=== PATIENT | female | born 1940 | race African-American/Black ===

== ENCOUNTER 2016-12-24 05:24 | Day surgery (SDC) | payer OTHER ==
[~2016-12-24] VITALS: Ht 162.6 cm; Wt 90.7 kg
--- NOTE | ~2016-12-24 | O ---
[facility] [place] [address] OPERATIVE REPORT Name: CORNELIO RODRIGUEZ Room #: 150-3 [facility].#: [id number] Admission: 12/24/16 Attend Phys: Los Peralta MD Discharge: Date of : 36 Report #: [id number] THIS REPORT FOR: //name// CC: Los Peralta Benjamin Fisheren DATE OF SERVICE: 12/24/2016 PREOPERATIVE DIAGNOSIS: Right upper lip lesion. POSTOPERATIVE DIAGNOSIS: Right upper lip lesion. PROCEDURE: Excision of right upper lip lesion with intermediate layered closure. SURGEON: Los Peralta MD. ANESTHESIA: Local MAC, 1% Xylocaine and 1:100,000 epinephrine, 6 mL used. TECHNIQUE: After obtaining consent, the patient was brought to the operating suite. Appropriate time-out was performed. Local MAC anesthesia was applied and monitored throughout the case by anesthesia. The right upper lip was identified and marked and local anesthetic was applied in a circumferential fashion. The lip was prepped and draped in usual sterile fashion. A vertically oriented elliptical incision was made around the mass through the skin and subcutaneous tissue. Sharp dissection with the scissors, isolated the mass away from the underlying subcutaneous tissue. This was going on top of the muscularis layer and using a cautery, pinpoint on a setting of 12 coagulation and it was amputated off the muscularis layer intact. Hemostasis was easily obtained with the use of electrocautery. Given the defect, I then undermined the medial and lateral edges of the incision. After obtaining hemostasis, I first tacked the red lip line together with a 5-0 chromic suture. A 4-0 Vicryl was then used subcutaneously to reapproximate subcutaneous tissues. The skin was closed with simple interrupted 5-0 black nylon and the mucosal portion of the lip that was open was closed with 5-0 chromic. Antibiotic ointment was applied. She was allowed to fully awake and went to the recovery room in stable condition. ESTIMATED BLOOD LOSS: Less than 5 mL. By: [id number] Los Peralta MD /janes
--- NOTE | ~2016-12-24 | S ---
[facility] [place] [address] SURGICAL PATH RPT PROCEDURE Name: CORNELIO PERKINS Room #: [facility] [facility]..#: [id number] Admission: 12/24/16 Date of : 36 Discharge: 12/24/16 Report #: [id number] Path Case #: [id number] PATHOLOGY REPORT COLLECTION DATE: 12/24/2016 RECEIVED DATE: 12/24/2016 SUBMITTING PHYS: Dr. Los Peralta OTHER PHYS: Dr. Benjamin Villasenor SPECIMEN(S) RECEIVED: A.Upper lip cyst * * * * * * * * * * * * FINAL DIAGNOSIS: Upper lip cyst, excision: - Mature keratinous cyst. (IUV:mgr; 12/27/2016) PATHOLOGIST: Vivienne Woodson M.D. REPORT ELECTRONICALLY SIGNED BY: Vivienne Woodson M.D. DATE/TIME: 12/27/2016 16:39 * * * * * * * * * * * * GROSS PATHOLOGY: The specimen is received in formalin, labeled "Cornelio Perkins, upper lip cyst". Received is an unoriented ellipse of skin with attached cutaneous intact cyst measuring 1.5 x 1.2 x 0.7 cm. Sectioning through the cyst reveals a thick, pale white material. No solid components are identified. Specimen is sectioned and entirely submitted in cassette A1. (SNA; 12/24/2016) CLINICAL HISTORY: Upper lip cyst INITIAL CPT CODE(S): A; 73862 Professional services performed by [facility] at [facility] [address] [place] [address] Technical services performed by [facility] at [address] [place] [id number]. [facility] [address] [place] [address] SURGICAL PATH RPT PROCEDURE Name: CORNELIO PERKINS Room #: [facility] [place].#: [id number] Admission: 12/24/16 Date of : 36 Discharge: 12/24/16 Report #: [id number] Path Case #: [id number] [address] PHONE: [phone] DIRECTOR: Henry Edward M.D. * * * END OF REPORT * * *
--- NOTE | ~2016-12-24 | H ---
[facility] [place] [address] HISTORY AND PHYSICAL Name: CORNELIO RODRIGUEZ Room #: 150-3 [facility].#: [id number] Admission: 12/24/16 Attend Phys: Los Peralta MD Discharge: Date of : 36 Report #: [id number] THIS REPORT FOR: //name// CC: Los Allanh Villasenor DATE OF SERVICE: 12/24/2016 PREOPERATIVE DIAGNOSIS: Lip lesion. HISTORY OF PRESENT ILLNESS: The patient is a 76-year-old female who presented to the clinic back in October of this year with a 2 month history of a right upper lip lesion, which was not painful, but has been fluctuating in size. She has no history of known trauma to the area. Physical examination did demonstrate a small almost 1 cm subcutaneous immobile mass on the right upper lip against the red lip line near the philtrum. Remainder of the mucosal lip and skin lip was unremarkable. Based on this examination, I think she had an epidermal inclusion cyst in the upper lip. I discussed the natural history of this lesion, the option of leaving it or surgically removing it. Removal would include 2 vital areas including the red lip line as well as very near the philtrum. She is aware that this will leave a vertical scar and it will be a challenge cosmetically to keep the philtrum symmetric. I discussed this with her as well as the risk of infection, bleeding and keloid formation. She is wanting to proceed forward at this time. ALLERGIES TO MEDICATION: None. MEDICATIONS ON ADMISSION: Include 81 mg aspirin, B complex, vitamin, fish oil, gabapentin 300 mg t.i.d., losartan, omeprazole, Skelaxin, Synthroid 120 mcg a day, Toprol XL and tramadol. PAST MEDICAL AND SURGICAL HISTORY: Notable for hysterectomy, knee surgery, hip surgery, thyroid surgery, history of hypertension, hypercholesterolemia, hypothyroidism. FAMILY HISTORY: Unknown cancer. REVIEW OF SYSTEMS: Presently negative for any GI, , cardiovascular or pulmonary issues. PHYSICAL EXAMINATION: GENERAL: Female, appears her stated age. VITAL SIGNS: Height 5 feet 4 inches, weight 205 pounds. HEENT: As already described above for the right upper lip. Oral cavity and pharynx is normal. NECK: Normal to palpation. [facility] [address] [place] [address] HISTORY AND PHYSICAL Name: CORNELIO RODRIGUEZ Room #: 150-3 [facility]..#: [id number] Admission: 12/24/16 Attend Phys: Los Peralta MD Discharge: Date of : 36 Report #: [id number] CHEST: Clear. CARDIOVASCULAR: Regular rhythm. ASSESSMENT: History of right upper lip lesion. PLAN: Will be for excision and primary closure under local anesthetic. <ELECTRONICALLY SIGNED> By: Los Peralta MD 12/24/16 0928 15 2149 Los Peralta MD /nt
[~2016-12-24 05:24] MED LIST: ASPIR 8181 MG PO; CENTRUM SILVER1 EAC4 PO; COZAAR 25 MG TA25 M1 PO; FISH OIL 1,0001 EAC9 PO; HYDROCODONE-AP1 EAC6 PO; IBUPROFEN 800800 M1 PO; LEVOTHYROXIN0.125 M1 PO; LOSARTAN-HCTZ1 EAC3 PO; NEURONTIN 300300 M1 PO; NORVASC5 MG PO; OMEPRAZOLE20 M2 PO; PRILOSEC 20 MG20 MG PO; SKELAXIN 800 M800 M1 PO; TOPROL XL100 MG PO; ULTRAM 50MG TAB50 MG PO; VITAMIN B-1100 M1 PO; VITAMIN E400 UNIT PO
[2016-12-24 07:12] LABS: CALCIUM 8.9 mg/dL (8.5-10.1); POTASSIUM 3.1 mmol/L (3.5-5.1)
[2016-12-24 07:47] VITALS: BP 142/61
[2016-12-24 09:32] VITALS: BP 142/61
== END 2016-12-24 10:10 | disposition home or self-care (01) ==
LOC: OR 05:24 → TBA 05:24 → OR 10:10
PROVIDERS: Otolaryngology
DX: D10.0 Benign neoplasm of lip (principal)
CPT/HCPCS: 50010; 50101; 50386; 50398; 56805; 62110; 62850; 70005